=== PATIENT | female | born 1945 | race Caucasian/White ===

== ENCOUNTER 2017-09-16 05:25 | Inpatient (IN) | payer MEDICARE ==
[2017-09-07 11:54] LABS: BASOPHILS # (AUTO) 0.1 X10'3 (0-0.2); BASOPHILS % (AUTO) 0.9 % (0-1); EOSINOPHILS % (AUTO) 0 % (0-6); LYMPHOCYTES # (AUTO) 1.5 X10'3 (1.1-4.8); LYMPHOCYTES % (AUTO) 27.3 % (21-51); MEAN CORPUSCULAR HEMOGLOBIN 31.4 PG (27.0-31.0); MEAN CORPUSCULAR HGB CONC 33.6 % (33.0-36.5); MEAN CORPUSCULAR VOLUME 93.4 FL (78-98); MEAN PLATELET VOLUME 8.6 FL (7.4-10.4); MONOCYTES # (AUTO) 0.4 X10'3 (0-0.9); MONOCYTES % (AUTO) 7.8 % (2-12); NEUTROPHILS # (AUTO) 3.6 X10'3 (1.8-7.7); PRE OP HEMATOCRIT 39.9 % (35.0-45.0); PRE OP HEMOGLOBIN 13.4 g/dL (12.0-16.0); PRE OP PLATELET COUNT 200 X10'3 (140-440); RED BLOOD COUNT 4.27 X10'6 (4.20-5.60); RED CELL DISTRIBUTION WIDTH 13.6 % (11.5-14.5)
[2017-09-07 12:07] LABS: CLARITY,URINE CLEAR (Clear); COLOR,URINE STRAW (Yellow); GLUCOSE, URINE NEGATIVE (Neg); KETONES,URINE NEGATIVE (Neg); LEUKOCYTE ESTERASE ,URINE NEGATIVE (Neg); NITRITES, URINE NEGATIVE (Neg); OCCULT BLOOD,URINE NEGATIVE (Neg); PROTEIN,URINE NEGATIVE (Neg); UROBILINOGEN,URINE 0.2 E.U/dL (0.2-1.0)
[2017-09-07 12:08] LABS: ALKALINE PHOSPHATASE 99 IU/L (46-116); BLOOD UREA NITROGEN 12 MG/DL (7-18); CALCIUM 9.8 MG/DL (8.5-10.1); CHLORIDE 106 MMOL/L (99-107); PRE OP ALT 27 U/L (30-65); PRE OP ANION GAP 7 (8-16); PRE OP AST 12 U/L (10-37); PRE OP BILIRUB, TOTAL 0.6 MG/DL (0.0-1.0); PRE OP GLUCOSE 90 MG/DL (70-104); PRE OP POTASSIUM 3.5 MMOL/L (3.4-5.1); PRE OP SODIUM 143 MMOL/L (135-145); TOTAL CARBON DIOXIDE 30.4 MMOL/L (24-32); TOTAL PROTEIN 8.1 G/DL (6.4-8.2); eGFR > 90 ML/MIN
[2017-09-07 12:19] LABS: UA COLLECTION TYPE CLN CATCH MIDSTREAM
[2017-09-16] VITALS (28 sets, daily range): BP systolic 72–125; BP diastolic 42–87
[~2017-09-16] VITALS: Ht 162.6 cm; Wt 76.2 kg
[~2017-09-16 05:25] MED LIST: ATOR40TA PO; BENA1TAB13 PO; CALC-1051 PO; CYAN100097 PO; IBUP-1984 PO; ringers solution, lacted 1,000 ML IV SCH
[2017-09-16] MEDS ORDERED: oxyCODONE SR 10mg (sust. release) tab PO ONE (05:30)
[2017-09-16] MEDS ORDERED: vancomycin inj 1,500 MG in normal saline 300ml IV soln IV ONE (05:30)
[2017-09-16] MEDS ORDERED: celeCOXIB 100mg capsule PO ONE (05:30)
[2017-09-16] MEDS ORDERED: acetaminophen 325mg tablet PO ONE (05:30)
[2017-09-16] MEDS ORDERED: ceFAZolin 2gm in dextrose, iso 100 ML IV ONE (05:30)
[2017-09-16] MEDS ORDERED: metoclopramide 5 mg/ml inj IV ONE (05:30)
[2017-09-16] MEDS ORDERED: scopolamine 1.5mg patch.TD72 TD ONE (05:30)
[2017-09-16] MEDS ORDERED: famotidine 20mg tablet PO ONE (05:30)
[2017-09-16] MEDS ORDERED: tranexamic acid inj. 1,000 MG in normal saline 100ml IV soln 90 ML IV ONE (05:30)
[2017-09-16] MEDS ORDERED: gabapentin 300mg capsule PO ONE (05:30)
[2017-09-16] MEDS ORDERED: LIDOcaine 1% (10mg/ml) 2ml vial ONE (05:53)
[2017-09-16] MEDS ORDERED: ketorolac trometh. 30mg/ml inj. ONE (06:39)
[2017-09-16] MEDS ORDERED: epiNEPHrine 1 mg/ml inj ONE (06:40)
[2017-09-16] MEDS ORDERED: ROPIVAcaine 0.5% (5mg/ml) 30ml vial ONE ×2 (06:40→07:00)
[2017-09-16] MEDS ORDERED: vancomycin 1,000mg inj ONE (06:40)
[2017-09-16] MEDS ORDERED: cloNIDine hcl/PF 100mcg/ml inj ONE ×2 (06:40→07:00)
[2017-09-16] MEDS ORDERED: tetracaine 1% (10mg/ml) pres. free inj. ONE (07:00)
[2017-09-16] MEDS ORDERED: MORPHINE SULFATE/PF 0.5 MG/ML 10ML AMPUL ONE (07:04)
[2017-09-16] MEDS ORDERED: fentaNYL/PF 50MCG/1 ML 2ML syringe ONE (07:04)
[2017-09-16] MEDS ORDERED: MIDAZolam 1mg/ml 10ml vial ONE (07:04)
[2017-09-16] MEDS ORDERED: ePHEDrine 50MG/ML INJ. ONE ×2 (07:36→11:22)
[2017-09-16] MEDS ORDERED: naloxone 2mg/2ml inj 2 MG in normal saline 500ml IV soln 500 ML IV PRN (08:06)
[2017-09-16] MEDS ORDERED: ringers solution, lacted 1,000 ML IV SCH (08:06)
[2017-09-16] MEDS ORDERED: diphenhydrAMINE 50 mg/ml inj IV PRN (08:10)
[2017-09-16] MEDS ORDERED: meperidine/PF 25mg/ml syringe IV PRN ×3 (08:10)
[2017-09-16] MEDS ORDERED: morphine 2 MG/ML inj. syringe IV PRN ×5 (08:10→17:30)
[2017-09-16] MEDS ORDERED: ondansetron/PF 4mg/2ml inj IV PRN ×3 (08:10→09:30)
[2017-09-16] MEDS ORDERED: proCHLORperazine 10 MG/2 ml inj IV PRN (08:10)
[2017-09-16] MEDS ORDERED: bisacodyl 10mg suppository rectal RC PRN (09:30)
[2017-09-16] MEDS ORDERED: acetaminophen 325mg tablet PO PRN (09:30)
[2017-09-16] MEDS ORDERED: HYDROmorphone inj. 0.5 MG/0.5 ML DISP.SYRIN IV PRN ×2 (09:30)
[2017-09-16] MEDS ORDERED: diphenhydrAMINE 25mg capsule PO PRN ×2 (09:30)
[2017-09-16] MEDS ORDERED: magnesium hydroxide 30ml (MOM) UD suspension PO PRN (09:30)
[2017-09-16] MEDS: gabapentin 300mg capsule PO SCH ×2 (14:55→19:32)
[2017-09-16] MEDS: oxyCODONE/APAP 10/325mg tablet PO SCH ×3 (14:55→20:03)
[2017-09-16] MEDS: potassium cl 20mEq in 1/2 NS 1,000 ML IV SCH ×2 (14:56→17:29)
[2017-09-16] MEDS: cefazolin 1gm/NS 100mL 100 ML IV SCH (17:10)
[2017-09-16] MEDS: celeCOXIB 100mg capsule PO SCH (19:25)
[2017-09-16] MEDS: ascorbic acid 500mg tablet PO SCH (19:26)
[2017-09-16] MEDS: calcium carbonate/vitamin D3 tablet PO SCH (19:28)
[2017-09-16] MEDS ORDERED: vancomycin/NS 1 GM ADD-VANTAGE 250 ML IV SCH (20:00)
[2017-09-16] MEDS: sennosides 8.6mg tablet PO SCH (20:03)
[2017-09-16] MEDS ORDERED: atorvastatin 20mg tablet PO SCH ×2 (21:00→21:21)
[2017-09-16] MEDS ORDERED: BENAZEPRIL PO SCH (21:00)
[2017-09-16] MEDS ORDERED: HYDROCHLOROTHIAZIDE PO SCH (21:00)
[2017-09-16] MEDS ORDERED: [UNRECOGNIZED DRUG - OTHER] PO SCH (21:00)
[2017-09-16] MEDS: atorvastatin 20mg tablet PO SCH (21:59)
[2017-09-17] VITALS (7 sets, daily range): BP systolic 83–122; BP diastolic 49–65
[2017-09-17] MEDS: cefazolin 1gm/NS 100mL 100 ML IV SCH (00:09)
[2017-09-17] MEDS: oxyCODONE/APAP 10/325mg tablet PO SCH ×6 (05:21→21:45)
[2017-09-17] MEDS: potassium cl 20mEq in 1/2 NS 1,000 ML IV SCH ×3 (05:22→19:55)
[2017-09-17 06:21] LABS: BASOPHILS % (AUTO) 0.4 % (0-1); EOSINOPHILS # (AUTO) 0.2 X10'3 (0-0.9); EOSINOPHILS % (AUTO) 2.4 % (0-6); HEMATOCRIT 30.3 % (35.0-45.0); HEMOGLOBIN 10.6 g/dl (12.0-16.0); LYMPHOCYTES % (AUTO) 14.7 % (21-51); MEAN CORPUSCULAR HEMOGLOBIN 32.5 PG (27.0-31.0); MEAN CORPUSCULAR VOLUME 92.7 FL (78-98); MEAN PLATELET VOLUME 7.7 FL (7.4-10.4); MONOCYTES # (AUTO) 0.3 X10'3 (0-0.9); NEUTROPHILS # (AUTO) 5.4 X10'3 (1.8-7.7); NEUTROPHILS % (AUTO) 77.5 % (42-75); PLATELET COUNT 146 X10'3 (140-440); RED BLOOD COUNT 3.27 X10'6 (4.20-5.60); RED CELL DISTRIBUTION WIDTH 13.9 % (11.5-14.5)
[2017-09-17 06:47] LABS: ANION GAP 10 (8-16); CHLORIDE 106 MMOL/L (99-107); POTASSIUM 3.6 MMOL/L (3.5-5.1); SODIUM 140 MMOL/L (135-145); TOTAL CARBON DIOXIDE 24.5 MMOL/L (24-32)
[2017-09-17] MEDS: lisinopril 10 MG tablet PO SCH (08:00)
[2017-09-17] MEDS: HYDROchlorothiazide 12.5mg capsule PO SCH (08:00)
[2017-09-17] MEDS: aspirin 325mg tablet PO SCH (08:37)
[2017-09-17] MEDS: ascorbic acid 500mg tablet PO SCH ×2 (08:37→21:49)
[2017-09-17] MEDS: gabapentin 300mg capsule PO SCH ×3 (08:37→21:43)
[2017-09-17] MEDS: cyanocobalamin 500mcg tablet PO SCH (08:37)
[2017-09-17] MEDS: celeCOXIB 100mg capsule PO SCH ×2 (08:37→21:43)
[2017-09-17] MEDS: multivitamins, therapeutics tablet PO SCH (08:37)
[2017-09-17] MEDS: oxyCODONE/APAP 10/325mg tablet PO PRN ×3 (09:40→17:14)
[2017-09-17] MEDS: LACTOBACILLUS RHAMNOSUS GG 15 billion unit sprinkle caps PO SCH (10:07)
[2017-09-17] MEDS: Protein Shake (high protein) 240ml (8oz) cup PO SCH (18:00)
[2017-09-17] MEDS ORDERED: oxyCODONE/APAP 10/325mg tablet PO PRN (20:30)
[2017-09-17] MEDS: calcium carbonate/vitamin D3 tablet PO SCH (21:00)
[2017-09-17] MEDS: atorvastatin 20mg tablet PO SCH (21:43)
[2017-09-17] MEDS: sennosides 8.6mg tablet PO SCH (21:44)
[2017-09-18] MEDS: potassium cl 20mEq in 1/2 NS 1,000 ML IV SCH (01:29)
[2017-09-18] MEDS: oxyCODONE/APAP 10/325mg tablet PO SCH ×3 (02:12→08:00)
[2017-09-18 06:00] VITALS: BP 114/47
[2017-09-18 06:35] LABS: BASOPHILS % (AUTO) 0.4 % (0-1); EOSINOPHILS # (AUTO) 0.1 X10'3 (0-0.9); EOSINOPHILS % (AUTO) 2.1 % (0-6); HEMATOCRIT 27.8 % (35.0-45.0); LYMPHOCYTES # (AUTO) 0.7 X10'3 (1.1-4.8); LYMPHOCYTES % (AUTO) 10.3 % (21-51); MEAN CORPUSCULAR HEMOGLOBIN 32.5 PG (27.0-31.0); MEAN CORPUSCULAR HGB CONC 35.9 % (33.0-36.5); MEAN CORPUSCULAR VOLUME 90.7 FL (78-98); MEAN PLATELET VOLUME 7.8 FL (7.4-10.4); MONOCYTES # (AUTO) 0.5 X10'3 (0-0.9); MONOCYTES % (AUTO) 6.7 % (2-12); NEUTROPHILS # (AUTO) 5.5 X10'3 (1.8-7.7); NEUTROPHILS % (AUTO) 80.5 % (42-75); PLATELET COUNT 131 X10'3 (140-440); RED BLOOD COUNT 3.07 X10'6 (4.20-5.60); RED CELL DISTRIBUTION WIDTH 13.5 % (11.5-14.5); WHITE BLOOD COUNT 6.9 X10'3 (4.5-11.0)
[2017-09-18] MEDS: lisinopril 10 MG tablet PO SCH (07:14)
[2017-09-18] MEDS: ascorbic acid 500mg tablet PO SCH (07:15)
[2017-09-18] MEDS: multivitamins, therapeutics tablet PO SCH (07:15)
[2017-09-18] MEDS: cyanocobalamin 500mcg tablet PO SCH (07:15)
[2017-09-18] MEDS: gabapentin 300mg capsule PO SCH (07:15)
[2017-09-18] MEDS: HYDROchlorothiazide 12.5mg capsule PO SCH (07:15)
[2017-09-18] MEDS: LACTOBACILLUS RHAMNOSUS GG 15 billion unit sprinkle caps PO SCH (07:15)
[2017-09-18] MEDS: celeCOXIB 100mg capsule PO SCH (07:15)
[2017-09-18] MEDS: aspirin 325mg tablet PO SCH (07:15)
[2017-09-18] MEDS: Protein Shake (high protein) 240ml (8oz) cup PO SCH (08:41)
[2017-09-18] MEDS ORDERED: ASPI-1 PO (08:55)
[2017-09-18 10:00] VITALS: BP 97/56
== END 2017-09-18 11:10 | disposition home or self-care (01) | DRG 470 ==
LOC: PAS IN 05:25 → EDSTATUS 07:30 → ORTHO 4S 12:30
PROVIDERS: ADMIT Orthopaedic Surgery; ATTEND Orthopaedic Surgery
PROC: 3E0T3BZ Introduction of Anesthetic Agent into Peripheral Nerves and Plexi, Percutaneous Approach (ICD-10-PCS; 2017-09-16)
PROC: 0SRC0J9 Replacement of Right Knee Joint with Synthetic Substitute, Cemented, Open Approach (ICD-10-PCS; principal; 2017-09-16 07:16)
DX: M17.11 Unilateral primary osteoarthritis, right knee (principal); D62 Acute posthemorrhagic anemia; M06.9 Rheumatoid arthritis, unspecified; E78.5 Hyperlipidemia, unspecified; G89.29 Other chronic pain; I10 Essential (primary) hypertension; E66.9 Obesity, unspecified; Z90.710 Acquired absence of both cervix and uterus; Z98.49 Cataract extraction status, unspecified eye; Z91.030 Bee allergy status; Z88.2 Allergy status to sulfonamides; Z88.8 Allergy status to other drugs, medicaments and biological substances; Z91.040 Latex allergy status; Z79.899 Other long term (current) drug therapy; Z79.01 Long term (current) use of anticoagulants; Z85.3 Personal history of malignant neoplasm of breast; Z68.28 Body mass index [BMI] 28.0-28.9, adult
CPT/HCPCS: 36415; 71046; 73560; 80051; 80053; 81003; 85025; 86885; 86900; 86901; 87070; 97110; 97116; 97161; 97530; A6255; A6449; A6455; A7000; C1713; C1758; C1776; J0171; J0690; J0735; J1885; J2250; J2270; J2274; J2405; J2765; J2795; J3010; J3370; J3420; J3490; J7030; J7120